=== PATIENT | female | born 1990 | race Two or more races ===

== ENCOUNTER 2021-10-30 02:25 | Emergency (ER) | payer MEDICAID ==
[~2021-10-30] VITALS: Ht 160 cm; Wt 89.0 kg
[2021-10-30 06:10] LABS: CHLORIDE 108 mEq/L (98-107)
[2021-10-30 06:33] LABS: B-HCG QUANTITATIVE 10511 mIU/mL (<3)
[2021-10-30 06:34] LABS: BASOPHILS % 0.4 % (0.0-2.0); EOSINOPHILS % 1.5 % (0.0-5.0); HEMATOCRIT. 40.3 % (36.0-48.0); HEMOGLOBIN. 14.2 g/dL (12.0-16.0); LYMPHOCYTES % 12.8 % (20.0-50.0); MEAN CORPUSCULAR HEMOGLOBIN 32.7 pg (28.0-32.0); MEAN CORPUSCULAR VOLUME 92.6 fL (81.0-99.0); MONOCYTES % 7.8 % (2.0-8.0); NEUTROPHILS % 77.5 % (40.0-76.0); PLATELET 324 x1000/uL (130-400); RED BLOOD CELL COUNT 4.35 mill/uL (4.2-5.4); RED CELL DISTRIBUTION WIDTH 12.8 % (11.6-14.6)
[2021-10-30 07:30] LABS: CLARITY URINE CLEAR (CLEAR); COLOR URINE YELLOW (YELLOW); KETONES URINE NEGATIVE (NEGATIVE); LEUKOCYTE ESTERASE URINE NEGATIVE (NEGATIVE); NITRITE URINE NEGATIVE (NEGATIVE); OCCULT BLOOD URINE 3+ (NEGATIVE); PROTEIN URINE NEGATIVE (NEGATIVE); SPECIFIC GRAVITY URINE 1.017 (1.005-1.030); UROBILINOGEN URINE 0.2 E.U./dL (0.2-1.0)
[2021-10-30] MEDS ORDERED: TOPUD PO (08:42)
[2021-10-30 09:08] VITALS: BP 117/68
== END 2021-10-30 09:11 | disposition home or self-care (01) ==
LOC: ER 02:25
DX: O02.1 Missed abortion (principal)
CPT/HCPCS: 36415; 76801; 80053; 81003; 81025; 84702; 85025; 86900; 99284

== ENCOUNTER 2021-10-31 12:14 | Emergency (ER) | payer MEDICAID ==
[~2021-10-31] VITALS: Ht 160 cm; Wt 88.0 kg
[~2021-10-31 12:14] MED LIST: TOPUD PO
[2021-10-31 14:18] VITALS: BP 132/81
== END 2021-10-31 14:19 | disposition home or self-care (01) ==
LOC: ER 12:14
DX: O20.9 Hemorrhage in early pregnancy, unspecified (principal); Z3A.09 9 weeks gestation of pregnancy
CPT/HCPCS: 36415; 84702; 99283

== ENCOUNTER 2022-02-26 12:52 | Emergency (ER) | payer MEDICAID ==
[~2022-02-26] VITALS: Ht 165.1 cm; Wt 72.0 kg
[2022-02-26 14:56] LABS: CHLORIDE 108 mEq/L (98-107)
[2022-02-26 15:00] LABS: BASOPHILS % 0.2 % (0.0-2.0); EOSINOPHILS % 0.9 % (0.0-5.0); HEMATOCRIT. 38.6 % (36.0-48.0); HEMOGLOBIN. 13.5 g/dL (12.0-16.0); LYMPHOCYTES % 11.1 % (20.0-50.0); MEAN CORPUSCULAR HEMOGLOBIN 32.4 pg (28.0-32.0); MEAN CORPUSCULAR VOLUME 92.8 fL (81.0-99.0); MEAN PLATELET VOLUME 7.8 fl (7.4-10.4); MONOCYTES % 3.2 % (2.0-8.0); NEUTROPHILS % 84.6 % (40.0-76.0); PLATELET 340 x1000/uL (130-400); RED BLOOD CELL COUNT 4.16 mill/uL (4.2-5.4); RED CELL DISTRIBUTION WIDTH 12.8 % (11.6-14.6)
[2022-02-26 15:20] LABS: B-HCG QUANTITATIVE 41424 mIU/mL (<3)
[2022-02-26 18:05] VITALS: BP 120/66
== END 2022-02-26 18:11 | disposition home or self-care (01) ==
LOC: ER 12:52
DX: O20.0 Threatened abortion (principal); Z3A.01 Less than 8 weeks gestation of pregnancy
CPT/HCPCS: 36415; 76801; 80053; 84702; 85025; 86850; 86900; 99284